=== PATIENT | female | born 1985 | race African-American/Black ===

== ENCOUNTER 2017-11-29 16:48 | Emergency (ER) | payer BC, SELFPAY | END 2017-11-29 17:39 | disposition home or self-care (01) | LOC: ERS 16:48 | DX: S00.83XA Contusion of other part of head, initial encounter (principal); V89.2XXA Person injured in unspecified motor-vehicle accident, traffic, initial encounter | CPT/HCPCS: 99283 ==

== ENCOUNTER 2024-04-30 09:35 | Outpatient (CLI) | payer BC | END 2024-04-30 09:36 | disposition home or self-care (01) | LOC: BICMAMMO 09:35 | PROVIDERS: ATTEND Advanced Practice Midwife | DX: Z12.31 Encounter for screening mammogram for malignant neoplasm of breast (principal); N64.89 Other specified disorders of breast; Z80.3 Family history of malignant neoplasm of breast | CPT/HCPCS: 77063; 77067 ==

== ENCOUNTER 2024-05-21 09:46 | Outpatient (CLI) | payer BC | END 2024-05-21 09:47 | disposition home or self-care (01) | LOC: BICMAMMO 09:46 | PROVIDERS: ATTEND Internal Medicine Hospice and Palliative Medicine | DX: N63.20 Unspecified lump in the left breast, unspecified quadrant (principal) | CPT/HCPCS: G0279 ==